=== PATIENT | female | born 1975 | race Caucasian/White ===

== ENCOUNTER 2016-12-10 17:55 | Emergency (ER) | payer SELFPAY ==
[2016-12-10 18:27] LABS: LEUKOCYTE ESTERASE,URINE NEGATIVE (NEGATIVE); NITRITE,URINE NEGATIVE (NEGATIVE); PH,URINE 5.5 (5.0-7.5)
[2016-12-10] MEDS ORDERED: HYDROmorphONE/DILAUDID 1 MG/ML SYR IVP ONE ×3 (18:28→23:37)
[2016-12-10] MEDS ORDERED: ONDANSETRON 4 MG/2 ML VIAL IVP ONE ×2 (18:28→21:36)
[2016-12-10] MEDS ORDERED: fentaNYL 100 MCG/2 ML INJ IVP ONE (18:28)
[2016-12-10] MEDS ORDERED: NS 1,000 ML IV ONE (18:28)
[2016-12-10 18:33] LABS: COLOR DARK YELLOW
--- NOTE | 2016-12-10 18:33 | UCPHY ---
H & P Time Seen by Provider: 12/10/16 18:07 Patient Type: New HPI/ROS: HPI Back pain, lower abdominal pain. 41-year-old female by private vehicle with her friend. This patient reports that she woke up this morning with left lower back and flank pain with radiation to the left lower quadrant. She reports that she feels some of this on the right side as well but not as much. She has had nausea throughout the day but no vomiting. She reports that she drank some coffee this morning but has not been drinking fluids significantly today or eating. Last bowel movement was yesterday. This was described as normal. No bloody or melenic stool. Last menstrual period was 1 week ago. She denies any urinary complaints. She has felt feverish and fatigued. ROS: Constitutional: As above. Eyes: No discharge. No changes in vision. ENT: No sore throat. No nasal congestion or rhinorrhea. Respiratory: No cough. No shortness of breath. Cardiac: No chest pain, no palpitations. Gastrointestinal: As above, no vomiting, no diarrhea. Genitourinary: No hematuria. No dysuria or increased frequency with urination. Musculoskeletal: As above. No neck pain. No myalgias or arthralgias. Skin: No rashes. Neurological: No headache. No focal weakness or altered sensation. Past medical history: None. Social history: Here with her friend. Nonsmoker. Physical Exam: General Appearance: Alert, she appears uncomfortable. This patient is responding to questions appropriately and in full sentences. This patient appears well-hydrated and well-nourished. Eyes: Pupils equal and round no pallor or injection. No lid edema, erythema or injection. Respiratory: There are no retractions, lungs are clear to auscultation with good air movement bilaterally. Cardiovascular: Regular rate and rhythm. No murmur. Gastrointestinal: Abdomen is soft with vague left-sided tenderness on palpation , she has mild epigastric and right upper quadrant tenderness on palpation as well, no masses, bowel sounds normal. No focal tenderness at McBurney's point. No Latham sign. Neurological: Motor sensory function is grossly intact. Cranial nerves are normal. Gait is normal. Skin: Warm and dry, no rashes. Musculoskeletal: CVA tenderness on palpation on the left. Extremities are symmetrical. All joints range without pain or impingement. Psychiatric: No agitation. No depression. Database: EKG: Imaging: Procedures: Emergency department course: IV placed. She was placed on a bottom filler. She was started on IV normal saline with 1 L to be given over the next hour. She was initially given 0.5 mg of IV hydromorphone and 4 mg of IV Zofran. 7:30 p.m., patient re-evaluated. She is resting comfortably at this time. Repeat examination, she still has mild and vague left lower quadrant tenderness and left sided flank tenderness on palpation. I discussed the results of her blood work and urinalysis. I explained that the most likely diagnosis was a kidney stone. However, our diagnostic capabilities are limited here because we do not have imaging by CT or ultrasound at this time. I did discuss sending her to the [facility] Emergency Department for CT imaging. She is feeling better at this time. I think it is reasonable for her to go home with some antiemetics and pain medication to rest and to see if her condition continues to improve. Strict return to emergency department precautions were discussed with her and her friend. They are both in agreement with this plan. All of their questions were answered. She will be prescribed Zofran, ibuprofen and Emerson. 7:55 p.m., just prior to patient being discharged she was complaining of her pain coming back. I recommended she go to the emergency department for CT imaging to evaluate for probable ureterolithiasis at [facility]. Her friend will take her there. I contacted physician bar assistant, Baudilio Isbell, at at [facility] emergency department. The patient's case was discussed with him and he will see her on arrival. Differential Diagnosis: The differential diagnosis on this patient includes but is not limited to pyelonephritis, nephrolithiasis, diverticulitis, cystitis, colitis. This represents a partial list of diagnoses considered. These considerations are based on history, physical exam, past history, reassessment and diagnostic testing. Smoking Status: Never smoked Constitutional: Initial Vital Signs Temperature (C) 37.2 C 12/10/16 18:08 Heart Rate 79 12/10/16 18:08 Respiratory Rate 18 12/10/16 18:08 Blood Pressure 136/80 H 12/10/16 18:08 O2 Sat (%) 97 12/10/16 18:08 O2 Delivery Mode Room Air Allergies/Adverse Reactions: Sulfa (Sulfonamide Antibiotics) Allergy (Intermediate, Verified 12/10/16 18:08) Rash sulfamethoxazole [From Bactrim] Allergy (Unknown, Verified 12/10/16 18:08) Hives trimethoprim [From Bactrim] Allergy (Unknown, Verified 12/10/16 18:08) Hives Home Medications: Medication Instructions Recorded Hydrocodone/APAP 5/325 [Emerson 1 - 2 tab PO Q4-6PRN PRN #10 tab 12/10/16 5/325 (*)] Ondansetron Odt [Zofran Odt 4 mg 4 mg PO Q4PRN PRN #10 tab 12/10/16 (*)] Valtrex 12/10/16 Medical Decision Making - Data Points Laboratory Results: Laboratory Results 12/10/16 18:45 12/10/16 18:45 12/10/16 12/10/16 18:45 18:20 WBC 12.81 H 10^3/uL (3.80-9.50) RBC 4.28 10^6/uL (4.18-5.33) Hgb 13.3 g/dL (12.6-16.3) Hct 37.7 L % (38.0-47.0) MCV 88.1 fL (81.5-99.8) MCH 31.1 pg (27.9-34.1) MCHC 35.3 g/dL (32.4-36.7) RDW 12.4 % (11.5-15.2) Plt Count 291 10^3/uL (150-400) MPV 9.3 fL (8.7-11.7) Neut % (Auto) 83.3 H % (39.3-74.2) Lymph % (Auto) 9.3 L % (15.0-45.0) [place] % (Auto) 6.8 % (4.5-13.0) Eos % (Auto) 0.1 L % (0.6-7.6) Baso % (Auto) 0.2 L % (0.3-1.7) Nucleat RBC Rel Count 0.0 % (0.0-0.2) Absolute Neuts (auto) 10.67 H 10^3/uL (1.70-6.50) Absolute Lymphs (auto) 1.19 10^3/uL (1.00-3.00) Absolute Monos (auto) 0.87 H 10^3/uL (0.30-0.80) Absolute Eos (auto) 0.01 L 10^3/uL (0.03-0.40) Absolute Basos (auto) 0.03 10^3/uL (0.02-0.10) Absolute Nucleated RBC 0.00 10^3/uL (0-0.01) Immature Gran % 0.3 % (0.0-1.1) Immature Gran # 0.04 10^3/uL (0.00-0.10) Sodium 133 L mEq/L (134-144) Potassium 3.6 mEq/L (3.5-5.2) Chloride 99 mEq/L (97-110) Carbon Dioxide 25 mEq/l (22-31) Anion Gap 9 mEq/L (8-16) BUN 9 mg/dL (7-23) Creatinine 0.7 mg/dL (0.6-1.0) Estimated GFR > 60 Glucose 110 H mg/dL (70-100) Calcium 9.1 mg/dL (8.5-10.4) Total Bilirubin 0.9 mg/dL (0.1-1.4) Conjugated Bilirubin 0.2 mg/dL (0.0-0.5) Unconjugated Bilirubin 0.7 mg/dL (0.0-1.1) AST 15 IU/L (14-46) ALT 27 IU/L (9-52) Alkaline Phosphatase 50 IU/L (38-126) Total Protein 6.5 g/dL (6.3-8.2) Albumin 3.6 g/dL (3.5-5.0) Lipase 57.0 IU/L (23-300) Urine Color DARK YELLOW Urine Appearance CLOUDY Urine pH 5.5 (5.0-7.5) Ur Specific [place] >= 1.030 (1.002-1.030) Urine Protein NEGATIVE (NEGATIVE) Urine Ketones 2+ H (NEGATIVE) Urine Blood 1+ H (NEGATIVE) Urine Nitrate NEGATIVE (NEGATIVE) Urine Bilirubin POSITIVE H (NEGATIVE) Urine Urobilinogen 0.2 EU (0.2-1.0) Ur Leukocyte Esterase NEGATIVE (NEGATIVE) Urine RBC 5-10 H /hpf (0-3) Urine WBC NONE SEEN /hpf (0-3) Ur Epithelial Cells 2+ H /lpf (NONE-1+) Urine Bacteria 1+ H /hpf (NONE SEEN) Urine Mucus 3+ H /lpf (NONE-1+) Ur Culture Indicated? NOT INDICATED (NI) Urine Glucose NEGATIVE (NEGATIVE) Urine Test NEGATIVE Medications Given: Discontinued Medications Acetaminophen/Hydrocodone Bitart (Emerson 5/325mg Prepack#6) 1 btl TAKEHOME EDNOW ONE Stop: 12/10/16 19:38 Last Admin: 12/10/16 19:43 Dose: 1 btl Fentanyl (Sublimaze) 100 mcg IVP EDNOW ONE Stop: 12/10/16 18:29 Last Admin: 12/10/16 18:58 Dose: Not Given Hydromorphone HCl (Dilaudid) 0.5 mg IVP EDNOW ONE Stop: 12/10/16 18:29 Last Admin: 12/10/16 18:40 Dose: 0.5 mg Sodium Chloride (Ns) 1,000 mls @ 0 mls/hr IV ONCE ONE PRN Reason: Wide Open Stop: 12/10/16 18:29 Last Admin: 12/10/16 18:40 Dose: 1,000 mls Ondansetron HCl (Zofran) 4 mg IVP EDNOW ONE Stop: 12/10/16 18:29 Last Admin: 12/10/16 18:40 Dose: 4 mg Ondansetron HCl (Zofran Odt 4 Mg Prepack#2) 1 btl TAKEHOME EDNOW ONE Stop: 12/10/16 19:38 Last Admin: 12/10/16 19:45 Dose: 1 btl Departure - Departure Disposition: [facility] ER Clinical Impression: Lower abdominal pain, Left flank pain Condition: Good Instructions: Flank Pain (ED), Kidney Stones (ED) Additional Instructions: Read and follow provided instructions. Follow-up with your primary care physician in 1-2 days for re-evaluation as needed. Ibuprofen dosin mg every 6 hours with meals for the next 3 days only. Emerson/Percocet dosin-2 every 4-[address] for [address] not drive on this medication. Take medication as prescribed only. As discussed, go directly to [facility] emergency department on the corner of [facility] in [place]. Referrals: IN STATE,. [Unknown] - As per Instructions Prescriptions: Hydrocodone/APAP 5/325 [Emerson 5/325 (*)] 1 - 2 tab PO Q4-6PRN PRN #10 tab PRN Reason: Pain, Moderate Ondansetron Odt [Zofran Odt 4 mg (*)] 4 mg PO Q4PRN PRN #10 tab PRN Reason: For Nausea & Vomiting - PQRS PQRS Measurement: Not applicable.
[2016-12-10 18:37] LABS: BACTERIA 1+ /hpf (NONE SEEN); MUCUS 3+ /lpf (NONE-1+); WBC,URINE NONE SEEN /hpf (0-3)
[2016-12-10 18:50] LABS: % IMMATURE GRANULYOCYTES 0.3 % (0.0-1.1); ABSOLUTE IMMATURE GRANULOCYTES 0.04 10^3/uL (0.00-0.10); ADD DIFF? NO; ADD MORPH? NO; ADD SCAN? NO; ATYPICAL LYMPHOCYTE FLAG 10 (0-99); FRAGMENT RBC FLAG 0 (0-99); HEMATOCRIT 37.7 % (38.0-47.0); HEMOGLOBIN 13.3 g/dL (12.6-16.3); LEFT SHIFT FLG 0 (0-99); LIPEMIA HEMOLYSIS FLAG 90 (0-99); MEAN CELL HEMOGLOBIN 31.1 pg (27.9-34.1); MEAN CELL HEMOGLOBIN CONCENTR. 35.3 g/dL (32.4-36.7); MEAN CELL VOLUME 88.1 fL (81.5-99.8); MEAN PLATELET VOLUME 9.3 fL (8.7-11.7); PLATELET CLUMPS FLAG 10 (0-99); PLATELET COUNT 291 10^3/uL (150-400); RED BLOOD CELL COUNT 4.28 10^6/uL (4.18-5.33); RED CELL DISTRIBUTION WIDTH 12.4 % (11.5-15.2)
[2016-12-10 19:05] LABS: ALANINE AMINOTRANSFERASE 27 IU/L (9-52); ALBUMIN 3.6 g/dL (3.5-5.0); ALKALINE PHOSPHATASE 50 IU/L (38-126); ANION GAP 9 mEq/L (8-16); ASPARTATE AMINOTRANSFERASE 15 IU/L (14-46); BILIRUBIN,TOTAL 0.9 mg/dL (0.1-1.4); BILIRUBIN-CONJUGATED 0.2 mg/dL (0.0-0.5); BILIRUBIN-UNCONJUGATED 0.7 mg/dL (0.0-1.1); CALCIUM 9.1 mg/dL (8.5-10.4); CARBON DIOXIDE 25 mEq/l (22-31); CHLORIDE 99 mEq/L (97-110); CREATININE 0.7 mg/dL (0.6-1.0); GLOMERULAR FILTRATION RATE > 60; GLUCOSE 110 mg/dL (70-100); POTASSIUM 3.6 mEq/L (3.5-5.2); SODIUM 133 mEq/L (134-144); TOTAL PROTEIN 6.5 g/dL (6.3-8.2)
[2016-12-10] MEDS ORDERED: HYDROCOD/APAP 5/325 PREPACK#6 BTL TAKEHOME ONE (19:37)
[2016-12-10] MEDS ORDERED: ONDANSETRON 4MG PREPACK#2 BTL TAKEHOME ONE (19:37)
--- NOTE | 2016-12-10 21:44 | EDPHY ---
H & P Stated Complaint: abd pain; sent by [facility] - Personal History LMP (Females 10-55): 1-7 Days Ago - Medical/Surgical History Other PMH: denies - Social History Smoking Status: Never smoked Time Seen by Provider: 12/10/16 18:07 HPI/ROS: CHIEF COMPLAINT: Abdominal pain HISTORY OF PRESENT ILLNESS: 41-year-old female initially seen at [facility] and sent to the emergency department for further evaluation. She reports that she woke this morning with left flank pain with radiation to her left lower quadrant with associated nausea. No vomiting. Bowel movements have been normal. No melena or hematochezia. Denies urinary complaints. Denies trauma. REVIEW OF SYSTEMS: A ten point review of systems was performed and is negative with the exception of the items mentioned in the HPI PAST MEDICAL & SURGICAL HISTORY: No history of abdominal surgeries beyond C- section SOCIAL HISTORY: nonsmoker PHYSICAL EXAM (Prior to examination, patient consented to physical exam, hands were washed and my usual and customary physical exam procedures followed) 1) GENERAL: Well-developed, well-nourished, alert and oriented. Appears Uncomfortable 2) HEAD: Normocephalic, atraumatic 3) HEENT: Pupils equal, round, reactive to light bilaterally. Sclera anicteric. 4) NECK: Full range of motion, no meningeal signs. 5) LUNGS: Clear auscultation bilaterally, no wheezes, no rhonchi, no retractions. 6) HEART: Regular rate and rhythm, no murmur, no heave, no gallop. 7) ABDOMEN: No guarding, tender to palpation left upper quadrant , negative McBurney's, negative Latham's, negative Rovsing's, negative peritoneal sign, 8) MUSCULOSKELETAL: Moving all extremities, no focal areas of tenderness, no obvious trauma. No peripheral edema or discoloration. 9) BACK: positive mild left CVA tenderness, no midline vertebral tenderness, no fluctuance, no step-off, no obvious trauma, no visual or palpable abnormality. 10) SKIN: No rash, no petechiae. 11) Psychiatric: Patient is oriented X 3, there is no agitation. DIFFERENTIAL DIAGNOSIS: My differential diagnosis includes, but is not limited to, acute appendicitis, acute cholecystitis, bowel obstruction, acute pancreatitis, ectopic , gastritis and urinary tract infection. (Javi Isbell) Constitutional: Initial Vital Signs Temperature (C) 37.2 C 12/10/16 18:08 Heart Rate 79 12/10/16 18:08 Respiratory Rate 18 12/10/16 18:08 Blood Pressure 136/80 H 12/10/16 18:08 O2 Sat (%) 97 12/10/16 18:08 O2 Delivery Mode Room Air Allergies/Adverse Reactions: Sulfa (Sulfonamide Antibiotics) Allergy (Intermediate, Verified 12/10/16 18:08) Rash sulfamethoxazole [From Bactrim] Allergy (Unknown, Verified 12/10/16 18:08) Hives trimethoprim [From Bactrim] Allergy (Unknown, Verified 12/10/16 18:08) Hives Home Medications: Medication Instructions Recorded Hydrocodone/APAP 5/325 [Blythe 1 - 2 tab PO Q4-6PRN PRN #10 tab 12/10/16 5/325 (*)] Ondansetron Odt [Zofran Odt 4 mg 4 mg PO Q4PRN PRN #10 tab 12/10/16 (*)] Valtrex 12/10/16 Medical Decision Making - Diagnostics Imaging: CT Scan of the Urinary Tract (Abdomen and Pelvis Without Contrast) Clinical Indications: Abdominal and left flank pain in a 41-year-old female. No previous studies are available for comparison. Technique: Multidetector helical CT imaging was performed from the lung bases to the urinary bladder without contrast. Axial images are obtained at 1.25 mm thickness. Dose reduction techniques were utilized. Findings: Abdomen: There is no nephrolithiasis. The ureters appear normal throughout their course in the abdomen.There is no hydronephrosis. There is a large simple cyst of the midpole of the left kidney measuring 7 x 5 cm. The imaged noncontrast portions of the liver, spleen, gallbladder, pancreas and adrenals are negative for acute abnormality. Several well-circumscribed low-attenuation areas are seen in the liver with the largest measuring 1.7 cm in diameter with fluid-attenuation of 2.8 Hounsfield units consistent with a simple cyst. Other smaller low-attenuation areas are statistically cysts also. The aorta tapers normally. The lung bases are clear. Pelvis: The bladder contour is normal and the distal ureters are not dilated.The appendix appears normal. The uterus is anteverted. Multiple pelvic phleboliths are noted. There is no free fluid seen. Degenerative changes are seen in the lumbar spine most prominently at L5-S1 where there is disk space loss and a vacuum disk phenomenon noted. Impression: 1. Negative for nephrolithiasis or obstructive uropathy. A large simple cyst of the left kidney is noted. 2. See above report for additional findings. A preliminary report was called to FABIAN Hardy at 2230 hours in the Emergency Department. Dictated By: Wil Driver MD Images reviewed by myself (Jaiv Isbell) ED Course/Re-evaluation: 1210: This patient was signed over to me at 11:00 p.m. shift change to follow up her pelvic ultrasound. Is reported to me that her pelvic ultrasound is unremarkable by Dr. Driver. I did go and reexamine this patient she is comfortable going home. She does understand she develops any worsening pain vomiting fever or questions or concerns to return to the emergency room. ( Yasmany Nichols) 9:40 p.m.: Medical records reviewed. Discussed case Dr. Lisa Harp in the ER. I recommended CT imaging which she is agreeable with. Analgesia anti emetic will be administered 12:30 am: Care turned over to Dr Nichols at this time. (Javi Isbell) - Data Points Laboratory Results: Laboratory Results 12/10/16 18:45 12/10/16 18:45 12/10/16 12/10/16 12/10/16 23:10 18:45 18:20 WBC 12.81 H 10^3/uL (3.80-9.50) RBC 4.28 10^6/uL (4.18-5.33) Hgb 13.3 g/dL (12.6-16.3) Hct 37.7 L % (38.0-47.0) MCV 88.1 fL (81.5-99.8) MCH 31.1 pg (27.9-34.1) MCHC 35.3 g/dL (32.4-36.7) RDW 12.4 % (11.5-15.2) Plt Count 291 10^3/uL (150-400) MPV 9.3 fL (8.7-11.7) Neut % (Auto) 83.3 H % (39.3-74.2) Lymph % (Auto) 9.3 L % (15.0-45.0) [place] % (Auto) 6.8 % (4.5-13.0) Eos % (Auto) 0.1 L % (0.6-7.6) Baso % (Auto) 0.2 L % (0.3-1.7) Nucleat RBC Rel Count 0.0 % (0.0-0.2) Absolute Neuts (auto) 10.67 H 10^3/uL (1.70-6.50) Absolute Lymphs (auto) 1.19 10^3/uL (1.00-3.00) Absolute Monos (auto) 0.87 H 10^3/uL (0.30-0.80) Absolute Eos (auto) 0.01 L 10^3/uL (0.03-0.40) Absolute Basos (auto) 0.03 10^3/uL (0.02-0.10) Absolute Nucleated RBC 0.00 10^3/uL (0-0.01) Immature Gran % 0.3 % (0.0-1.1) Immature Gran # 0.04 10^3/uL (0.00-0.10) Sodium 133 L mEq/L (134-144) Potassium 3.6 mEq/L (3.5-5.2) Chloride 99 mEq/L (97-110) Carbon Dioxide 25 mEq/l (22-31) Anion Gap 9 mEq/L (8-16) BUN 9 mg/dL (7-23) Creatinine 0.7 mg/dL (0.6-1.0) Estimated GFR > 60 Glucose 110 H mg/dL (70-100) Calcium 9.1 mg/dL (8.5-10.4) Total Bilirubin 0.9 mg/dL (0.1-1.4) Conjugated Bilirubin 0.2 mg/dL (0.0-0.5) Unconjugated Bilirubin 0.7 mg/dL (0.0-1.1) AST 15 IU/L (14-46) ALT 27 IU/L (9-52) Alkaline Phosphatase 50 IU/L (38-126) Total Protein 6.5 g/dL (6.3-8.2) Albumin 3.6 g/dL (3.5-5.0) Lipase 57.0 IU/L (23-300) Urine Color YELLOW DARK YELLOW Urine Appearance HAZY CLOUDY Urine pH 5.0 5.5 (5.0-7.5) (5.0-7.5) Ur Specific [place] 1.016 >= 1.030 (1.002-1.030) (1.002-1.030) Urine Protein NEGATIVE NEGATIVE (NEGATIVE) (NEGATIVE) Urine Ketones 2+ H 2+ H (NEGATIVE) (NEGATIVE) Urine Blood 1+ H 1+ H (NEGATIVE) (NEGATIVE) Urine Nitrate NEGATIVE NEGATIVE (NEGATIVE) (NEGATIVE) Urine Bilirubin NEGATIVE POSITIVE H (NEGATIVE) (NEGATIVE) Urine Urobilinogen NEGATIVE EU 0.2 EU (0.2-1.0) (0.2-1.0) Ur Leukocyte Esterase NEGATIVE NEGATIVE (NEGATIVE) (NEGATIVE) Urine RBC 1-3 /hpf 5-10 H /hpf (0-3) (0-3) Urine WBC NONE SEEN /hpf NONE SEEN /hpf (0-3) (0-3) Ur Epithelial Cells 2+ H /lpf 2+ H /lpf (NONE-1+) (NONE-1+) Urine Bacteria 1+ H /hpf (NONE SEEN) Urine Mucus 2+ H /lpf 3+ H /lpf (NONE-1+) (NONE-1+) Ur Culture Indicated? NOT INDICATED (NI) Urine Glucose NEGATIVE NEGATIVE (NEGATIVE) (NEGATIVE) Urine Test NEGATIVE Medications Given: Discontinued Medications Acetaminophen/Hydrocodone Bitart (Blythe 5/325mg Prepack#6) 1 btl TAKEHOME EDNOW ONE Stop: 12/10/16 19:38 Last Admin: 12/10/16 19:43 Dose: 1 btl Fentanyl (Sublimaze) 100 mcg IVP EDNOW ONE Stop: 12/10/16 18:29 Last Admin: 12/10/16 18:58 Dose: Not Given Hydromorphone HCl (Dilaudid) 0.5 mg IVP EDNOW ONE Stop: 12/10/16 18:29 Last Admin: 12/10/16 18:40 Dose: 0.5 mg Hydromorphone HCl (Dilaudid) 1 mg IVP EDNOW ONE Stop: 12/10/16 21:37 Last Admin: 12/10/16 21:45 Dose: 1 mg Hydromorphone HCl (Dilaudid) 0.5 mg IVP EDNOW ONE Stop: 12/10/16 23:38 Last Admin: 12/10/16 23:43 Dose: 0.5 mg Sodium Chloride (Ns) 1,000 mls @ 0 mls/hr IV ONCE ONE PRN Reason: Wide Open Stop: 12/10/16 18:29 Last Admin: 12/10/16 18:40 Dose: 1,000 mls Ondansetron HCl (Zofran) 4 mg IVP EDNOW ONE Stop: 12/10/16 18:29 Last Admin: 12/10/16 18:40 Dose: 4 mg Ondansetron HCl (Zofran Odt 4 Mg Prepack#2) 1 btl TAKEHOME EDNOW ONE Stop: 12/10/16 19:38 Last Admin: 12/10/16 19:45 Dose: 1 btl Ondansetron HCl (Zofran) 4 mg IVP EDNOW ONE Stop: 12/10/16 21:37 Last Admin: 12/10/16 21:45 Dose: 4 mg Departure - Departure Disposition: [facility] ER Clinical Impression: Lower abdominal pain, Left flank pain Condition: Good Instructions: Hydrocodone/Acetaminophen (By mouth), Ondansetron (By mouth), Kidney Stones (ED), Flank Pain (ED) Additional Instructions: Read and follow provided instructions. Follow-up with your primary care physician in 1-2 days for re-evaluation as needed. Ibuprofen dosin mg every 6 hours with meals for the next 3 days only. Blythe/Percocet dosin-2 every 4-[address] not drive on this medication. Take medication as prescribed only. As discussed, go directly to [facility] emergency department on the corner of [address] in [place]. Referrals: IN STATE,. [Unknown] - As per Instructions Ashvin Hawthorne MD [Medical Doctor] - As per Instructions Prescriptions: Hydrocodone/APAP 5/325 [Blythe 5/325 (*)] 1 - 2 tab PO Q4-6PRN PRN #10 tab PRN Reason: Pain, Moderate Ondansetron Odt [Zofran Odt 4 mg (*)] 4 mg PO Q4PRN PRN #10 tab PRN Reason: For Nausea & Vomiting
--- NOTE | 2016-12-10 22:38 | CT ---
CT Scan of the Urinary Tract (Abdomen and Pelvis Without Contrast) Clinical Indications: Abdominal and left flank pain in a 41-year-old female. No previous studies are available for comparison. Technique: Multidetector helical CT imaging was performed from the lung bases to the urinary bladder without contrast. Axial images are obtained at 1.25 mm thickness. Dose reduction techniques were ut ilized. Findings: Abdomen: There is no nephrolithiasis. The ureters appear normal throughout their course in the abdome n.There is no hydronephrosis. There is a large simple cyst of the midpole of the left kidney measurin g 7 x 5 cm. The imaged noncontrast portions of the liver, spleen, gallbladder, pancreas and adrenals are negativ e for acute abnormality. Several well-circumscribed low-attenuation areas are seen in the liver with the largest measuring 1.7 cm in diameter with fluid-attenuation of 2.8 Hounsfield units consistent wi th a simple cyst. Other smaller low-attenuation areas are statistically cysts also. The aorta tapers normally. The lung bases are clear. Pelvis: The bladder contour is normal and the distal ureters are not dilated.The appendix appears n ormal. The uterus is anteverted. Multiple pelvic phleboliths are noted. There is no free fluid seen. Degenerative changes are seen in the lumbar spine most prominently at L5-S1 where there is disk space loss and a vacuum disk phenomenon noted. Impression: 1. Negative for nephrolithiasis or obstructive uropathy. A large simple cyst of the left kidney is no neyda. 2. See above report for additional findings. A preliminary report was called to FABIAN Hardy at 2230 hours in the Emergency Department.
[2016-12-10 23:32] LABS: COLOR YELLOW; LEUKOCYTE ESTERASE,URINE NEGATIVE (NEGATIVE); NITRITE,URINE NEGATIVE (NEGATIVE)
[2016-12-10 23:37] LABS: MUCUS 2+ /lpf (NONE-1+)
[2016-12-10 23:38] LABS: WBC,URINE NONE SEEN /hpf (0-3)
[2016-12-11 00:57] VITALS: BP 121/69; PULSE 79; RESP 16; TEMP 98.6; O2SAT 95
--- NOTE | 2016-12-11 09:38 | US ---
Complete Retroperitoneal Ultrasound History: Large left renal cyst. Left flank pain. Comparison: CT abdomen and pelvis December 10, 2016 at 2151 hours. Findings: The right kidney measures 13.4 x 4.3 x 4.9 cm and the left kidney measures 14.6 x 7.9 x 7.8 cm, with transverse measurements exaggerated by a central cyst. There is a 7.6 x 4.9 x 4.3 cm cyst i n the mid left kidney corresponding to the finding on CT, with minimal layering debris. There is no h ydronephrosis. Cortical thickness is normal. The bladder is normal. The patient had voided immediately prior to the study. Bladder volume at the t helen of the study is 99 mL. Impression: 7.6 cm benign left renal cyst. Findings discussed with Yasmany Nichols today at 0052 hours. The preliminary and final reports were c oncordant.
== END 2016-12-11 01:21 | disposition still patient (30) ==
LOC: CED 17:55
DX: R10.30 Lower abdominal pain, unspecified (principal); N28.1 Cyst of kidney, acquired
CPT/HCPCS: 80048-PO; 80076-PO; 81003-PO; 81015-PO; 81025-PO; 83690-PO; 85025-PO; 96360-PO; 96374; G0463-PO; J1170; J2405; J3010

== ENCOUNTER 2016-12-12 06:38 | Inpatient (IN) | payer OTHER ==
[2016-12-12] MEDS ORDERED: ACETAMINOPHEN 500 MG TAB PO ONE (07:12)
[2016-12-12] MEDS ORDERED: ONDANSETRON 4 MG/2 ML VIAL IVP ONE (07:12)
[2016-12-12] MEDS ORDERED: fentaNYL 100 MCG/2 ML INJ ONE ×2 (07:15→16:39)
[2016-12-12 07:20] LABS: % IMMATURE GRANULYOCYTES 0.4 % (0.0-1.1); ABSOLUTE IMMATURE GRANULOCYTES 0.07 10^3/uL (0.00-0.10); ADD DIFF? NO; ADD MORPH? NO; ADD SCAN? NO; ATYPICAL LYMPHOCYTE FLAG 10 (0-99); FRAGMENT RBC FLAG 0 (0-99); HEMATOCRIT 35.5 % (38.0-47.0); HEMOGLOBIN 12.4 g/dL (12.6-16.3); LEFT SHIFT FLG 0 (0-99); LIPEMIA HEMOLYSIS FLAG 90 (0-99); MEAN CELL HEMOGLOBIN 30.9 pg (27.9-34.1); MEAN CELL HEMOGLOBIN CONCENTR. 34.9 g/dL (32.4-36.7); MEAN CELL VOLUME 88.5 fL (81.5-99.8); MEAN PLATELET VOLUME 9.4 fL (8.7-11.7); PLATELET CLUMPS FLAG 10 (0-99); PLATELET COUNT 259 10^3/uL (150-400); RED BLOOD CELL COUNT 4.01 10^6/uL (4.18-5.33); RED CELL DISTRIBUTION WIDTH 12.2 % (11.5-15.2)
[2016-12-12] MEDS: NS 1,000 ML IV ONE ×2 (07:20→07:40)
[2016-12-12] MEDS ORDERED: fentaNYL 100 MCG/2 ML INJ IVP ONE (07:20)
[2016-12-12] MEDS ORDERED: NS 1,000 ML BAG *FOR SEPSIS ORDER SET ONLY IV ONE (07:21)
--- NOTE | 2016-12-12 07:25 | EDPHY ---
H & P Stated Complaint: abd pain, diff urinating, flank pain Time Seen by Provider: 12/12/16 07:10 HPI/ROS: CHIEF COMPLAINT: Left flank and abdominal pain HISTORY OF PRESENT ILLNESS: The patient is a 41-year-old healthy female who comes to the emergency department complaining of left flank pain, abdominal pain , dehydration, hematuria and bloating. She was seen here 2 days ago with left flank pain radiating to her groin. At that time she was diagnosed with a very large 7 x 5 cm simple cyst on her liver. She had a CT scan and ultrasound. Appendix was normal. No sign of kidney stone. Urinalysis did not show signs of infection. She felt better and went home. She states however that her pain has continued and worsened over the last 10 hours. She has also started to have fevers and chills. The pain increased gradually not suddenly. It now is in her lower abdomen right and left side. No vaginal or pelvic symptoms. She states that she has had some hematuria and decreased frequency and decreased volume. She classifies her pain as severe. No respiratory or upper respiratory symptoms. REVIEW OF SYSTEMS: Constitutional: denies: chills, fever, recent illness, recent injury EENTM: denies: blurred vision, double vision, nose congestion Respiratory: denies: cough, shortness of breath Cardiac: denies: chest pain, irregular heart rate, lightheadedness, palpitations Gastrointestinal/Abdominal: abdominal pain,denies: diarrhea, nausea, vomiting , blood streaked stools Genitourinary: See HPI Musculoskeletal: denies: joint pain, muscle pain Skin: denies: lesions, rash, jaundice, bruising Neurological: denies: headache, numbness, paresthesia, tingling, dizziness, weakness Hematologic/Lymphatic: denies: blood clots, easy bleeding, easy bruising Immunologic/allergic: denies: HIV/AIDS, transplant EXAM: GENERAL: Well-appearing, well-nourished and in no acute distress. HEAD: Atraumatic, normocephalic. EYES: Pupils equal round and reactive to light, extraocular movements intact, sclera anicteric, conjunctiva are normal. ENT: TMs normal, nares patent, oropharynx clear without exudates. Moist mucous membranes. NECK: Normal range of motion, supple without lymphadenopathy or JVD. LUNGS: Breath sounds clear to auscultation bilaterally and equal. No wheezes rales or rhonchi. HEART: Regular rate and rhythm without murmurs, rubs or gallops. ABDOMEN: Soft, mild diffuse tenderness, no peritoneal signs, normoactive bowel sounds. No guarding, no rebound. No masses appreciated. BACK: No CVA tenderness, no spinal tenderness, step-offs or deformities EXTREMITIES: Normal range of motion, no pitting or edema. No clubbing or cyanosis. NEUROLOGICAL: Cranial nerves II through XII grossly intact. Normal speech, normal gait. 5/5 strength, normal movement in all extremities, normal sensation PSYCH: Normal mood, normal affect. SKIN: Warm, dry, normal turgor, no visible rashes or lesions. Source: Patient Exam Limitations: No limitations - Personal History LMP (Females 10-55): 1-7 Days Ago Current Tetanus Diphtheria and Acellular Pertussis (TDAP): Unsure - Medical/Surgical History Hx Asthma: No Hx Chronic Respiratory Disease: No Hx Diabetes: No Hx Cardiac Disease: No Hx Renal Disease: No Hx Cirrhosis: No Hx Alcoholism: No Hx HIV/AIDS: No Hx Splenectomy or Spleen Trauma: No Other PMH: - Family History Significant Family History: Hypertension - Social History Smoking Status: Never smoked Alcohol Use: Sober Drug Use: None Constitutional: Initial Vital Signs Temperature (C) 38.4 C H 12/12/16 06:41 Heart Rate 98 12/12/16 06:41 Respiratory Rate 20 12/12/16 06:41 Blood Pressure 129/81 H 12/12/16 06:41 O2 Sat (%) 94 12/12/16 06:41 O2 Delivery Mode Nasal Cannula O2 (L/minute) 2 Allergies/Adverse Reactions: Sulfa (Sulfonamide Antibiotics) Allergy (Intermediate, Verified 12/10/16 18:08) Rash sulfamethoxazole [From Bactrim] Allergy (Unknown, Verified 12/10/16 18:08) Hives trimethoprim [From Bactrim] Allergy (Unknown, Verified 12/10/16 18:08) Hives Home Medications: Medication Instructions Recorded Hydrocodone/APAP 5/325 [[place] 1 - 2 tab PO Q4-6PRN PRN #10 tab 12/10/16 5/325 (*)] Ondansetron Odt [Zofran Odt 4 mg 4 mg PO Q4PRN PRN #10 tab 12/10/16 (*)] Medical Decision Making - Diagnostics Imaging: Results: CT scan of the abdomen and pelvis was obtained. The results of the study are left-sided renal cyst/possible abscess, on ruptured, no other abnormalities seen. The study was read by Dr. Johnathan Vázquez. I viewed the images myself on the PACS system. ED Course/Re-evaluation: Patient's CT scan looks similar to previous however she is now febrile and her white count has increased. She has had increased pain. I will admit her for IV antibiotics and likely drainage via interventional radiology. Patient understands and agrees this plan. The patient does meet sepsis criteria. She has been given a fluid bolus. 8:50 a.m. I discussed the case with Earline who accepted for Dr. Cartwright. Differential Diagnosis: Partial list of the Differential diagnosis considered include but were not limited to; abscess, cyst rupture, urinary tract infection, kidney stone and although unlikely based on the history and physical exam, I also considered diverticulitis, obstruction, ischemia. Critical Care Time: I spent a total of 35 minutes of critical care time in obtaining history, performing a physical exam, bedside monitoring of interventions, collecting and interpreting tests and discussion with consultants but not including time spent performing procedures . - Data Points Laboratory Results: Laboratory Results 12/12/16 07:10 12/12/16 07:10 12/12/16 12/12/16 12/12/16 07:30 07:15 07:10 WBC 17.70 H 10^3/uL (3.80-9.50) RBC 4.01 L 10^6/uL (4.18-5.33) Hgb 12.4 L g/dL (12.6-16.3) Hct 35.5 L % (38.0-47.0) MCV 88.5 fL (81.5-99.8) MCH 30.9 pg (27.9-34.1) MCHC 34.9 g/dL (32.4-36.7) RDW 12.2 % (11.5-15.2) Plt Count 259 10^3/uL (150-400) MPV 9.4 fL (8.7-11.7) Neut % (Auto) 83.5 H % (39.3-74.2) Lymph % (Auto) 8.6 L % (15.0-45.0) [place] % (Auto) 7.2 % (4.5-13.0) Eos % (Auto) 0.1 L % (0.6-7.6) Baso % (Auto) 0.2 L % (0.3-1.7) Nucleat RBC Rel Count 0.0 % (0.0-0.2) Absolute Neuts (auto) 14.79 H 10^3/uL (1.70-6.50) Absolute Lymphs (auto) 1.53 10^3/uL (1.00-3.00) Absolute Monos (auto) 1.27 H 10^3/uL (0.30-0.80) Absolute Eos (auto) 0.01 L 10^3/uL (0.03-0.40) Absolute Basos (auto) 0.03 10^3/uL (0.02-0.10) Absolute Nucleated RBC 0.00 10^3/uL (0-0.01) Immature Gran % 0.4 % (0.0-1.1) Immature Gran # 0.07 10^3/uL (0.00-0.10) VBG Lactic Acid 1.0 mmol/L (0.7-2.1) Sodium 135 mEq/L (134-144) Potassium 3.5 mEq/L (3.5-5.2) Chloride 100 mEq/L (97-110) Carbon Dioxide 26 mEq/l (22-31) Anion Gap 9 mEq/L (8-16) BUN 6 L mg/dL (7-23) Creatinine 0.7 mg/dL (0.6-1.0) Estimated GFR > 60 Glucose 128 H mg/dL (70-100) Calcium 8.1 L mg/dL (8.5-10.4) Total Bilirubin 0.6 mg/dL (0.1-1.4) Conjugated Bilirubin 0.1 mg/dL (0.0-0.5) Unconjugated Bilirubin 0.5 mg/dL (0.0-1.1) AST 15 IU/L (14-46) ALT 29 IU/L (9-52) Alkaline Phosphatase 60 IU/L (38-126) Total Protein 6.0 L g/dL (6.3-8.2) Albumin 3.2 L g/dL (3.5-5.0) Lipase 45.0 IU/L (23-300) Beta HCG, Qual NEGATIVE Urine Color YELLOW Urine Appearance HAZY Urine pH 6.0 (5.0-7.5) Ur Specific [place] 1.021 (1.002-1.030) Urine Protein 2+ H (NEGATIVE) Urine Ketones 1+ H (NEGATIVE) Urine Blood NEGATIVE (NEGATIVE) Urine Nitrate NEGATIVE (NEGATIVE) Urine Bilirubin NEGATIVE (NEGATIVE) Urine Urobilinogen NEGATIVE EU (0.2-1.0) Ur Leukocyte Esterase NEGATIVE (NEGATIVE) Urine RBC 1-3 /hpf (0-3) Urine WBC 1-3 /hpf (0-3) Ur Epithelial Cells 1+ /lpf (NONE-1+) Urine Bacteria TRACE H /hpf (NONE SEEN) Urine Mucus TRACE /lpf (NONE-1+) Ur Culture Indicated? NOT INDICATED (NI) Urine Glucose NEGATIVE (NEGATIVE) Influenza Typ A,B (DFA) NEGATIVE FOR FLU (NEGATIVE) Medications Given: Discontinued Medications Acetaminophen (Tylenol) 1,000 mg PO EDNOW ONE Stop: 12/12/16 07:13 Last Admin: 12/12/16 07:20 Dose: 1,000 mg Fentanyl (Sublimaze) 100 mcg IVP EDNOW ONE Stop: 12/12/16 07:21 Last Admin: 12/12/16 07:20 Dose: 100 mcg Hydromorphone HCl (Dilaudid) 1 mg IVP EDNOW ONE Stop: 12/12/16 08:45 Last Admin: 12/12/16 09:05 Dose: 1 mg Sodium Chloride (Ns) 1,000 mls @ 0 mls/hr IV EDNOW ONE PRN Reason: Wide Open Stop: 12/12/16 07:14 Last Admin: 12/12/16 07:40 Dose: Not Given Vancomycin/Sodium Chloride (Vancomycin 1 Gm (Premix)) 250 mls @ 250 mls/hr IV ONCE ONE Stop: 12/12/16 09:59 Last Admin: 12/12/16 09:45 Dose: 250 mls Ondansetron HCl (Zofran) 4 mg IVP EDNOW ONE Stop: 12/12/16 07:13 Last Admin: 12/12/16 07:20 Dose: 4 mg Sodium Chloride (Ns *For Sepsis Order Set Only*) 2,245 ml IV EDNOW ONE Stop: 12/12/16 07:22 Last Admin: 12/12/16 07:25 Dose: 2,245 ml Departure - Departure Disposition: [facility] Inpatient Acute Clinical Impression: Renal abscess, left Sepsis Qualifiers: Sepsis type: sepsis due to unspecified organism Qualifier Code: (A41.9) Sepsis , unspecified organism Condition: Fair
[2016-12-12 07:30] LABS: ANION GAP 9 mEq/L (8-16); CALCIUM 8.1 mg/dL (8.5-10.4); CARBON DIOXIDE 26 mEq/l (22-31); CHLORIDE 100 mEq/L (97-110); CREATININE 0.7 mg/dL (0.6-1.0); GLOMERULAR FILTRATION RATE > 60; GLUCOSE 128 mg/dL (70-100); POTASSIUM 3.5 mEq/L (3.5-5.2); SODIUM 135 mEq/L (134-144)
[2016-12-12 07:31] LABS: COLOR YELLOW; LEUKOCYTE ESTERASE,URINE NEGATIVE (NEGATIVE); NITRITE,URINE NEGATIVE (NEGATIVE)
[2016-12-12 07:37] LABS: BACTERIA TRACE /hpf (NONE SEEN); MUCUS TRACE /lpf (NONE-1+)
[2016-12-12 07:37] LABS: ALBUMIN 3.2 g/dL (3.5-5.0); BILIRUBIN,TOTAL 0.6 mg/dL (0.1-1.4); BILIRUBIN-CONJUGATED 0.1 mg/dL (0.0-0.5); BILIRUBIN-UNCONJUGATED 0.5 mg/dL (0.0-1.1)
[2016-12-12] MEDS ORDERED: IOPAMIDOL (ISOVUE-300) 50 ML VIAL IV ONE (07:43)
[2016-12-12] MEDS ORDERED: HYDROmorphONE/DILAUDID 1 MG/ML SYR IVP ONE (08:44)
[2016-12-12] MEDS ORDERED: VANCOMYCIN HCL/NORMAL SALINE 250 ML IV ONE (09:00)
[2016-12-12] MEDS: PIPERACILLIN/TAZO 4.5 GM/DEX 100 ML IV SCH ×3 (09:10→22:09)
--- NOTE | 2016-12-12 09:54 | CT ---
CT Abdomen and Pelvis With IV Contrast. Clinical Indication abdominal pain and flank pain. Fever. TECHNIQUE: 1.25 mm contiguous helical axial scanning through the abdomen after the uneventful adminis tration of 90 mL of Isovue-300. A 12 minute delay was performed to evaluate the collecting system. Ro utine reconstructions were performed in the coronal and sagittal planes. Dose reduction technique was performed. FINDINGS: A low density in the dome of the liver series 2 image 10 is most likely a cyst too small to characterize. There are other low densities including image 15 series 2 and image 16 series 2. These most likely represent cysts. The pancreas and spleen are unremarkable. The adrenal and right kidney are unremarkable. The left adrenal is unremarkable. There is a 7.4 x 6.6 x 6.2 cm parapelvic cyst in the left kidney. It does not appear to fill with contrast on the delayed imaging. It appears minimall y thick-walled. It measures 15 Hounsfield units postcontrast. Small bowel and colon are unremarkable. Bladder is fluid-filled. Minimal degenerative changes of the spine. IMPRESSION: 1. Indeterminate left kidney cyst. Cannot exclude infection given clinical history of elevated white blood cell count fever and left flank pain. It appears just slightly more thick-walled than a simple cyst on postcontrast imaging. If clinically concerned this could be sampled under CT or ultrasound gu idance. 2. Hypodensities in the liver most likely represent benign cysts. Critical results discussed by Dr. Vázquez with Dr. Rivers today 0845 hours.
[2016-12-12] MEDS ORDERED: oxyCODONE IR 5 MG TAB PO PRN (11:25)
[2016-12-12] MEDS ORDERED: ACETAMINOPHEN 325 MG TAB PO PRN (11:25)
[2016-12-12] MEDS ORDERED: ONDANSETRON DISINTEGRATING 4 MG TAB PO PRN ×2 (11:25→12:09)
[2016-12-12] MEDS ORDERED: NALOXONE HCL 0.4 MG/ML INJ IVP PRN (11:29)
[2016-12-12] MEDS ORDERED: morphINE PCA 30 MG/30 ML PCA IV PRN (11:29)
--- NOTE | 2016-12-12 13:37 | GHP ---
[f rep st] HISTORY AND PHYSICAL DATE OF ADMISSION: 12/12/2016 CHIEF COMPLAINT: Abdominal and flank pain. HISTORY OF PRESENT ILLNESS: Ms. Daugherty is a 41-year-old, generally healthy active female, who pres ented to the emergency room on 12/10/2016, with complaints of left-sided flank pain. At that time, a CT was performed noting an incidental renal cyst. The patient was sent home with pain medication. She returned to the emergency room on 12/12/2016, with increasing pain as well as a fever. The pain she describes as left-sided flank or back pain, as well as generalized lower quadrant abdominal pain, with significant bloating. She states that she has been nauseous for approximately 3 days, and has been unable to really eat anything. She states that she feels dehydrated and bloated. She denies an y fevers until last evening, at which time she developed fever with chills, and the pain has continue d to increase. She denies any vomiting or diarrhea. She denies any chest pain, shortness of breath, or dyspnea. She denies any headache or changes in vision. REVIEW OF SYSTEMS: A comprehensive 10-point review of systems is negative other than noted in the HP I. PAST MEDICAL HISTORY: Benign per the patient. PAST SURGICAL HISTORY: approximately 6 years ago. SOCIAL HISTORY: The patient denies any recreational drugs. She consumes 1-2 alcoholic beverages a w [place]. She participates in yoga and is very active. FAMILY HISTORY: Noted for hypertension. ALLERGIES: Sulfa. MEDICATIONS: Include [place] and Zofran which were provided to the patient approximately 2 days prior. PHYSICAL EXAM: GENERAL: The patient is alert, uncomfortable. VITAL SIGNS: Currently afebrile at 3 7.3, pulse is 81, respiratory rate 16, blood pressure is 124/75. She is saturating at 98% on 2 L. H EENT: Normocephalic, atraumatic. Mucous membranes are moist. Pupils equal, round, reactive to ligh t. NECK: Supple. RESPIRATORY: Lungs are clear to auscultation bilaterally. No rhonchi or wheezes appreciated. CARDIOVASCULAR: S1, S2. No gallop or murmur noted. GASTROINTESTINAL: Bowel sounds a re positive. Soft, tender in the lower quadrants. Mildly distended. BACK: No spinal tenderness. E XTREMITIES: Within normal limits. There is no clubbing or cyanosis appreciated. Normal range of mo tion. NEUROLOGIC: The patient is focally intact. SKIN: Warm and dry without rashes or lesions. LABORATORY DATA: White count is 17.7, with a hemoglobin 12.4, hematocrit 35.5. RADIOLOGICAL STUDIES: CT scan of the abdomen notes left kidney parapelvic cyst, as well as hypodensi ties in the liver, most likely representing benign cysts. ASSESSMENT AND PLAN: Ms. Daugherty is a 41-year-old female, admitted to the hospital secondary to inc reased flank pain, with notable cyst versus abscess, on CT scan. The patient will be evaluated by In terventional Radiology and the accumulation will be attempted to be drained. I have discussed the travis he's care with Dr. Rodolfo Mtz, of Infectious Disease. We will continue IV antibiotic therapy p er her recommendations. I have ordered a INSTALLER MOLDING AND TRIM for pain control. The patient will remain n.p.o. until Interventional Radiology is able to place a drain. Further action will be warranted based on the travis he's Interventional Radiology evaluation and development of plan of care. /[id number]/MODL
--- NOTE | 2016-12-12 13:43 | GCON ---
[f rep st] CONSULTATION INFECTIOUS DISEASE CONSULTATION DATE OF CONSULTATION: 12/12/2016 REFERRING PHYSICIAN: Earline Mims NP REASON FOR CONSULTATION: Left renal abscess, for further evaluation and management. CHIEF COMPLAINT: Left flank pain with fevers. HISTORY OF PRESENT ILLNESS: This is a 41-year-old female with a past medical history signi ficant for in 2009, mild urinary tract infections in the past not requiring antibiotics, wh o was admitted today due to increasing left flank pain and fevers. She states that her symptoms star neyda suddenly about 2 days ago with left flank pain. At that time, she was having some chills, but no fever. She came into the Urgent Care for further evaluation. She was noted to have a white blood c ell count of 12.8. She was then transferred to the ED for a CT scan and ultrasound. The CT scan not ed a large left renal cyst, and the ultrasound seemed to be consistent with that as well. She was se nt home, but continued to have pain. Yesterday, her pain became progressively worse, and she started to have fevers, and she came back in for further evaluation. CT scan again showed an indeterminate left kidney cyst versus abscess. This was measuring 7.4 x 6.6 x 6.2 cm. Neither one of her CT scans showed any nephrolithiasis or obstructive uropathy. There was a low density noted in the liver, whi ch was too small to characterize. Small bowel and colon were described as unremarkable. Today, her white blood cell count is elevated at 17.7 with a left shift. She came in with a fever of 38.4. Blo od cultures x2 sets have been drawn. She states that she occasionally has had mild cases of dysuria, which improved with cranberry juice a nd usually were self-limiting and have not required antibiotics in the past. She denied any trauma t o the left abdomen. She recently had dental cleaning about 1 month ago, and had not had regular demetria emelyn prior to that. She denied any heavy gum bleeding during that visit. She denies any recent epis odes of diarrhea. Infectious Disease is now consulted for further evaluation and opinion regarding t he above. REVIEW OF SYSTEMS: GENERAL: Had fevers and shaking chills. Had mild headache at present, but none previously. EYES: No change in vision. ENT: No sore throat, difficulty swallowing, ear pain or ea r drainage. CARDIOVASCULAR: Denies any chest pain or rapid heartbeat. RESPIRATORY: Denies any jeannie rtness of breath, cough or sputum production. ABDOMEN: Having some nausea, no vomiting. Abdomen fe els bloated and some pain along the left side, and then down to the suprapubic region. Denies any di arrhea. GENITOURINARY: Denies any dysuria. Did have some hematuria yesterday. MUSCULOSKELETAL: N o focal joint pains. Has some diffuse myalgias that are present now. SKIN: Denies any rashes or op en wounds. Rest of the 10-point review of systems is essentially negative except for the above. PAST MEDICAL HISTORY: No significant medical conditions in the past, except for some mild dysuria, n ot requiring antibiotics. PAST SURGICAL HISTORY: Significant for in 2009 without complication. ALLERGIES: Sulfa, which gives her a rash. She does not know of any throat swelling or shortness of breath with that. SOCIAL HISTORY: She is a nonsmoker. She drinks alcohol socially. Denies illicit drug usage. She h as a son. She works. She has had no travel outside of [place] or internationally recently. FAMILY HISTORY: Reviewed and found to be unremarkable. MEDICATIONS: As per JAN. PHYSICAL EXAMINATION: VITAL SIGNS: Temperature current 37.2, T-max today 38.4, pulse is 79, respira tory rate is 16, blood pressure 110/66, saturation 98% on room air. GENERAL: Patient is resting in bed, in no acute respiratory distress, but is in pain. HEENT: Head is normocephalic. Eyes were wit hout conjunctivitis or conjunctival petechiae. The oropharynx is clear. There is no posterior eryth xin or thrush. CARDIOVASCULAR: S1, S2 regular rate and rhythm. She has a soft systolic murmur note d. Respiratory: Clear to auscultation bilaterally. No rhonchi or rales appreciated. ABDOMEN: Pos itive bowel sounds. Tenderness, especially on the left side, with mild guarding, tenderness over the suprapubic region as well with some mild distention of the abdomen. MUSCULOSKELETAL: No obvious ishaan int effusions or pain on palpation of the joints. SKIN: No obvious rashes or open wounds. BACK: S he has left-sided CVA tenderness. LABS: White blood cell count 17.7, hemoglobin 12.4, platelets are 259, neutrophil count was 83%. La ctic acid 1.0. Chemistry: Sodium 135, potassium 3.5, chloride 100, bicarb 26, BUN is 6, creatinine 0.7. LFTs are within the normal range. Beta hCG is negative. Urinalysis, 2+ protein, 1+ ketones, n egative nitrites, negative leuk esterase. Urine WBCs 1-3, urine RBCs 1-3, trace bacteria. Influenza type A and B DFA negative. Microbiology: Blood cultures x2 sets are pending. Abdominal CT as desc ribed above. ASSESSMENT: Fevers, leukocytosis, with a left kidney collection, cyst versus abscess. PLAN: At this point in time, patient is currently on vancomycin and Zosyn. Feel like MRSA risk fact ors are low at this point in time. No recent history of [place] catheter. We will discontinue vancomy vamshi and continue with broad-spectrum antimicrobials with Zosyn. Await blood cultures to further eval uate. Recommend IR drainage of the left renal collection for culture sampling as well as for therape utic modality. Given recent dental cleaning, a soft systolic murmur, and current presentation, would recommend a 2D echo to further evaluate. Plan of care was discussed at length with the patient in d etail. Care was coordinated with the hospitalist team. We will continue to follow closely with you. Thank you very much for providing this opportunity to care for your patient in consultation. /[id number]/MODL
[2016-12-12] MEDS ORDERED: LORazepam 1 MG TAB PO ONE (15:30)
[2016-12-12] MEDS ORDERED: IOPAMIDOL (ISOVUE-300) 100 ML BTL IV ONE (17:27)
[2016-12-12] MEDS: D5W 1/2 NS 1,000 ML IV SCH (19:55)
[2016-12-13] MEDS: HYDROCODONE/APAP 5/325 TAB PO PRN ×7 (00:25→23:20)
[2016-12-13] MEDS: D5W 1/2 NS 1,000 ML IV SCH ×2 (03:56→15:57)
[2016-12-13] MEDS: PIPERACILLIN/TAZO 4.5 GM/DEX 100 ML IV SCH ×4 (03:56→22:00)
[2016-12-13 05:18] LABS: % IMMATURE GRANULYOCYTES 0.6 % (0.0-1.1); ABSOLUTE IMMATURE GRANULOCYTES 0.08 10^3/uL (0.00-0.10); ADD DIFF? NO; ADD MORPH? NO; ADD SCAN? NO; ATYPICAL LYMPHOCYTE FLAG 0 (0-99); FRAGMENT RBC FLAG 0 (0-99); HEMATOCRIT 29.8 % (38.0-47.0); HEMOGLOBIN 10.2 g/dL (12.6-16.3); LEFT SHIFT FLG 0 (0-99); LIPEMIA HEMOLYSIS FLAG 90 (0-99); MEAN CELL HEMOGLOBIN CONCENTR. 34.2 g/dL (32.4-36.7); MEAN CELL VOLUME 90.6 fL (81.5-99.8); MEAN PLATELET VOLUME 9.1 fL (8.7-11.7); PLATELET CLUMPS FLAG 10 (0-99); PLATELET COUNT 221 10^3/uL (150-400); RED BLOOD CELL COUNT 3.29 10^6/uL (4.18-5.33); RED CELL DISTRIBUTION WIDTH 12.6 % (11.5-15.2)
[2016-12-13 05:43] LABS: CALCIUM 7.1 mg/dL (8.5-10.4); CHLORIDE 103 mEq/L (97-110); CREATININE 0.7 mg/dL (0.6-1.0); GLOMERULAR FILTRATION RATE > 60; GLUCOSE 118 mg/dL (70-100); POTASSIUM 3.2 mEq/L (3.5-5.2); SODIUM 136 mEq/L (134-144)
[2016-12-13 06:58] LABS: ANION GAP 6 mEq/L (8-16); CARBON DIOXIDE 27 mEq/l (22-31)
--- NOTE | 2016-12-13 11:45 | ECHO ---
[id number] + + [address] : : [place] [address] : : [phone] + + Adult Echocardiographic Report + ---------+ :Name: IRAIS HARDING LStudy Date: 12/13/2016 07:43 AM : : Hospital Admission Number: [id number] Sharon alexander: 312: :: 1975 Gender: Female Height: 71 i n : :Age: 41 yrs Race: WH Weight: 165 lb : :Reason For Study: Eval for Endocarditis : : BSA: 1.9 met ers2 : :History: Murmur, Fevers, Renal absess : + ---------+ MMode/2D Measurements & Calculations IVSd: 0.99 cm LVIDd: 4.5 cm FS: 35.3 % Ao root diam: 3.5 cm LVPWd: 1.0 cm LVIDs: 2.9 cm EDV(Teich): 91.1 ml ACS: 2.3 cm ESV(Teich): 32.0 ml LA dimension: 2.6 cm EF(Teich): 64.9 % Normal Measurement Values: + + :LVIDd (3.5-5.7cm) IVSd (0.6-1.1cm) LVPWd (0.6-1.1cm) Aortic Root (2.0-3.7cm)Left Atrium (1.5-4.0cm): :LV Vol(d) (76-115ml) LV Vol(s) (29-48ml) Ejec Fraction (50-65%)PV Taj (0.6- 1.2m/s) TV Taj (0.4-1.0m/s) : :MV E Taj (0.8-1.0m/s)MV A Taj (0.3-1.0m/s)LVOT Taj (0.7-1.2m/s) Asc Ao Taj ( 0.9-1.8m/s) : + + Doppler Measurements & Calculations MV E max taj: Ao V2 max: LV V1 max: PA V2 max: 69.6 cm/sec 105.9 cm/sec 101.2 cm/sec 74.7 cm/sec MV A max taj: Ao max PG: LV V1 max PG: PA max P.8 cm/sec 4.5 mmHg 4.1 mmHg 2.2 mmHg MV E/A: 1.3 TR max taj: 226.7 cm/sec TR max P.6 mmHg RAP systole: 5.0 mmHg RVSP(TR): 25.6 mmHg Left Ventricle The left ventricle is normal in size and function. There is normal left ventricular wall thickness. The left ventricular ejection fraction is normal. Ejection Fraction = 66%. No regional wall motion abnormalities noted. Right Ventricle The right ventricle is normal in size and function. Atria The left atrial size is normal. Right atrial size is normal. Mitral Valve The mitral valve is normal in structure and function. There is no vegetation seen on the mitral valve. There is no mitral valve stenosis. There is no mitral regurgitation noted. Tricuspid Valve Normal tricuspid valve. No tricuspid regurgitation. Aortic Valve The aortic valve is normal in structure and function. The aortic valve is trileaflet. The aortic valve opens well. There is no aortic valvular vegetation. There is no aortic stenosis. There is no aortic insufficiency. Pulmonic Valve The pulmonic valve is normal in structure and function. There is no pulmonic valvular regurgitation. Great Vessels The aortic root is normal size. Pericardium/Pleural There is no pericardial effusion. Conclusion A complete two-dimensional transthoracic echocardiogram was performed (2D, M-mode, Doppler and color flow Doppler). There is no evidence of a mass or vegetation. This does not rule out endocarditis. The left ventricle is normal in size and function. The left ventricular ejection fraction is normal. Ejection Fraction = 66%. No regional wall motion abnormalities noted. The right ventricle is normal in size and function. The left atrial size is normal. Right atrial size is normal. There is no vegetation seen on the mitral valve. The aortic valve is normal in structure and function. The aortic valve is trileaflet. There is no aortic valvular vegetation. There is no pericardial effusion. There is no obvious evidence of a mass or vegetation. This does not rule out endocarditis. Final Reading Physician: Cachorro Michel signed on 12/13/2016 11:44 AM Ordering Physician: Rodolfo Mtz Performed By: Jean Sousa RDCS
[2016-12-13] MEDS ORDERED: POTASSIUM CL 20 MEQ TAB PO ONE (11:48)
--- NOTE | 2016-12-13 15:56 | HOSPPROG ---
Hospitalist Progress Note Assessment/Plan: #Acute renal abscess- CT abdomen (personally reviewed and interpreted) 7 x 6 x 6 cm abscess of the left kidney status post IR drainage yesterday with marked improvement in her pain cultures currently pending- blood cultures no growth to date - continue IV Zosyn - await culture results - patient transition to p.o. pain meds today id consulting for treatment recommendations and outpatient follow-up # acute leukocytosis - 17->13 this a.m. on antibiotics- oxygen saturations 95% on room air - continue current care #Prophylaxis Lovenox #Diet regular # disposition greater than 2 midnights as the patient requiring IV antibiotics and IV pain meds overnight have discussed the case with the RN- encourage ambulation and oral intake with hopeful disposition once culture results available Subjective: pain improved post drainage Objective: Vital Signs Temp Pulse Resp BP Pulse Ox 36.9 C 85 16 103/66 95 12/13/16 12:00 12/13/16 12:00 12/13/16 12:00 12/13/16 12:00 12/13/16 12:00 Microbiology 12/12/16 17:13 Gram Stain - Final Other - Aspirate Laboratory Results 12/13/16 05:05 12/13/16 05:05 12/12/16 12/13/16 12/14/16 05:59 05:59 05:59 Intake Total 125 Output Total 1525 Balance -1400 - Physical Exam Constitutional: appears nourished Eyes: anicteric sclera Ears, Nose, Mouth, Throat: moist mucous membranes Cardiovascular: regular rate and rhythym, systolic murmur Respiratory: no respiratory distress Gastrointestinal: normoactive bowel sounds Genitourinary: no bladder fullness Skin: warm, normal color Musculoskeletal: full muscle strength Neurologic: AAOx3 Psychiatric: interacting appropriately, not anxious Lymph, Heme, Immunologic: no cervical LAD ICD10 Worksheet Patient Problems: Problems Problem Status Diagnosed Renal abscess, left Acute Sepsis Acute
--- NOTE | 2016-12-13 18:46 | PCMIDPN ---
Assessment/Plan: Assessment/Plan: * Left renal abscess (or infected cyst) s/p percutaneous drainage: Gram stain with gram positive pleomorphic rods and now showing growth of gram-positive cocci. Continue Zosyn pending further culture data. Follow drain output over time. Likely to need follow-up CT once drainage slows to assess adequacy of drainage. 12/13/16 18:41 12/13/16 18:47 Subjective: Patient with left flank pain, worse with movement. Objective: Vital Signs Temp Pulse Resp BP Pulse Ox 36.6 C 83 16 103/67 95 12/13/16 16:00 12/13/16 16:00 12/13/16 16:00 12/13/16 16:00 12/13/16 16:00 Microbiology 12/12/16 17:13 Gram Stain - Final Other - Aspirate Laboratory Results 12/13/16 05:05 12/13/16 05:05 12/12/16 12/13/16 12/14/16 05:59 05:59 05:59 Intake Total 125 Output Total 1525 1520 Balance -1400 -1520 Zosyn #2 Blood cultures negative Renal abscess: gram + pleomorphic rods; culture [facility] CT reviewed showing large renal cyst - Physical Exam General Appearance: alert, no apparent distress EENT: pharynx normal, No scleral icterus Respiratory: lungs clear, No respiratory distress Cardiac/Chest: regular rate, rhythm Abdomen: non-tender, No distended Back: CVA tenderness (left flank; bloody output in KATY bulb) ICD10 Worksheet Patient Problems: Problems Problem Status Diagnosed Renal abscess, left Acute Sepsis Acute
[2016-12-14] MEDS: HYDROCODONE/APAP 5/325 TAB PO PRN ×2 (03:29→09:28)
[2016-12-14] MEDS: PIPERACILLIN/TAZO 4.5 GM/DEX 100 ML IV SCH ×4 (04:13→21:47)
--- NOTE | 2016-12-14 09:11 | IR ---
Ultrasound and fluoroscopy guided left renal drain placement INDICATION: Renal cyst at the superior pole that may be the source of patient's infection. Informed consent: Obtained from the patient. Risks and benefits were discussed. Crosscutting Measure: Patient's current list of medications including all known prescriptions, over- the-counters, herbals, and vitamin/mineral/dietary supplements are reviewed. Medications' name, dosa ge, frequency, and route of administration are confirmed. The patient is a non-smoker. Prophylactic Antibiotic: Cefazolin was not ordered and administered for antimicrobial prophylaxis be cause it was not medically necessary. VTE Prophylaxis: There is not an order for VTE prophylaxis to be given within 24 hours of the proced ure end time. VTE prophylaxis was not given because it was not medically necessary. Technique: Patient is placed in prone position. A "timeout" procedure was performed to identify the correct patient and the correct procedure. 1% Xylocaine was used for local anesthetic. All elemen ts of maximal sterile barrier technique including cap, mask, sterile gown, sterile gloves, large ster ile sheet, hand hygiene, and 2% chlorhexidine for cutaneous antisepsis, followed. Ultrasound evaluation of potential access site was performed. A permanent recording was created for the patient's record. When ultrasound is used, sterile gel and probe covers are used. Ultrasound indeed shows a complex left renal superior pole lesion has a fluid/fluid level. This was accessed using an AccuStick needle, followed by advancement of an AccuStick sheath over a Co pe wire. Tract was then dilated over an 0.035 wire, and an 8 German pigtail catheter was advanced. A total of 115 mL of purulent material were aspirated from the cyst, and sent for Gram stain and cult ure. Drain was then left in place attached to KATY bulb suction. The patient tolerated the procedure we ll. Medication: [125] micrograms fentanyl. Impression: 1. Purulent material aspirated out of the left renal cysts, 15 mL, sent for Gram stain and culture. 2. 8 German pigtail drain left in place and attached to bulb suction. 3. Once patient is medically adequately managed, and the drain output is less than 10 mL a day, drain can be removed.
[2016-12-14] MEDS: ONDANSETRON 4 MG/2 ML VIAL IVP PRN ×2 (10:57→17:44)
[2016-12-14] MEDS ORDERED: POLYETHYLENE GLYCOL 3350 17 GM PKT PO PRN (13:26)
[2016-12-14] MEDS ORDERED: BISACODYL 10 MG SUPP PR PRN (13:26)
[2016-12-14] MEDS ORDERED: MAGNESIUM HYDROXIDE 30 ML UDCUP PO PRN (13:26)
[2016-12-14] MEDS ORDERED: LACTULOSE 20 GM/30 ML UDCUP PO PRN (13:26)
[2016-12-14] MEDS: D5W 1/2 NS 1,000 ML IV SCH (13:42)
--- NOTE | 2016-12-14 14:41 | DX ---
Chest, Two Views at 1357 hours History: Shortness of breath. Comparison: None. Findings: Cardiac silhouette is within normal range. Left lower lobe alveolar opacity consistent with pneumonia. Minimal bilateral pleural effusions. No pneumothorax. Impression: 1. Left lower lobe pneumonia. 2. Minimal bilateral pleural effusions. 3. Recommend follow-up until clear.
--- NOTE | 2016-12-14 14:51 | HOSPPROG ---
Hospitalist Progress Note Assessment/Plan: 41y female presents to the emergency room complaints of flank pain. Reviewed her care with Dr. Myles of Infectious Disease #Acute renal abscess- CT abdomen 7 x 6 x 6 cm abscess of the left kidney Etiology unclear status post IR drainage with marked improvement in her pain and drain still in place cultures currently pending- blood cultures no growth to date - continue IV Zosyn - await culture results - patient transition to p.o. pain meds id consulting for treatment recommendations and outpatient follow-up # acute leukocytosis - on antibiotics - continue current care # acute hypoxemia Chest x-ray ordered Likely related to atelectasis Will follow # nausea vomiting Possibly related to pain medication Continue supportive management # constipation Bowel protocol #Prophylaxis Lovenox #Diet regular # disposition greater than 2 midnights as the patient requiring IV antibiotics and IV pain meds overnight Subjective: Complaints nausea and vomiting. Complaints mild shortness of breath. Overall not feeling well today. Objective: Vital Signs Temp Pulse Resp BP Pulse Ox 36.9 C 72 16 122/80 H 94 12/14/16 12:37 12/14/16 12:37 12/14/16 12:37 12/14/16 12:37 12/14/16 12:37 Microbiology 12/12/16 17:13 Gram Stain - Final Other - Aspirate Laboratory Results 12/13/16 05:05 12/13/16 05:05 12/13/16 12/14/16 12/15/16 05:59 05:59 05:59 Intake Total 125 2775 Output Total 1525 2973 Balance -1400 -198 - Physical Exam Constitutional: appears nourished, uncomfortable Eyes: PERRL, anicteric sclera, EOMI Ears, Nose, Mouth, Throat: moist mucous membranes, hearing normal, ears appear normal Cardiovascular: No JVD, No tachycardia, No edema Respiratory: no respiratory distress, no rales or rhonchi, reduced air movement Gastrointestinal: No tenderness, No ascites, No guarding Skin: warm, normal color, No erythema Musculoskeletal: no joint effusions, generalized weakness Neurologic: AAOx3 Psychiatric: not anxious, not encephalopathic, thought process linear ICD10 Worksheet Patient Problems: Problems Problem Status Diagnosed Renal abscess, left Acute Sepsis Acute
--- NOTE | 2016-12-14 17:17 | PCMIDPN ---
Assessment/Plan: Assessment: Left-sided renal abscess. Appears to be a Streptococcus species in culture of the fluid obtained with drainage. Patient is currently on Zosyn which undoubtedly covers this genus. Will await final identification prior to settling on the ultimate antibiotic she needs to use. The size of the abscesses impressive and may be compatible us to treat for a greater duration than 2 weeks. Plan: 1. Continue Zosyn. 2. Follow culture results from aspirate. We 3. Follow the amount of drainage obtained from the abscess cavity. Subjective: Patient is feeling much improved today. She had an episode of vomiting around her oral narcotic dose earlier. Pain is decreased. No fevers or chills. Objective: Zosyn # 3 Vital Signs Temp Pulse Resp BP Pulse Ox 37.4 C 87 16 124/79 H 95 12/14/16 17:08 12/14/16 15:54 12/14/16 15:54 12/14/16 15:54 12/14/16 15:54 Microbiology 12/12/16 17:13 Gram Stain - Final Other - Aspirate Laboratory Results 12/13/16 05:05 12/13/16 05:05 12/13/16 12/14/16 12/15/16 05:59 05:59 05:59 Intake Total 125 2775 Output Total 1525 2973 Balance -1400 -198 - Physical Exam General Appearance: WD/WN, alert, no apparent distress, toxic (Mildly) Respiratory: lungs clear, normal breath sounds, No respiratory distress Cardiac/Chest: regular rate, rhythm, No tachycardia Abdomen: soft Skin: normal color, warm/dry, No rash Neuro/Psych: alert, normal mood/affect, oriented x 3 ICD10 Worksheet Patient Problems: Problems Problem Status Diagnosed Renal abscess, left Acute Sepsis Acute
[2016-12-14] MEDS: SENNOSIDES/DOCUSATE SODIUM TAB PO SCH (19:33)
[2016-12-14 21:03] VITALS: RESP 16
[2016-12-15] MEDS: PIPERACILLIN/TAZO 4.5 GM/DEX 100 ML IV SCH ×2 (03:58→09:57)
[2016-12-15] MEDS: ONDANSETRON 4 MG/2 ML VIAL IVP PRN (06:05)
[2016-12-15] MEDS ORDERED: PIPERACILLIN/TAZO 4.5 GM/DEX 100 ML IV SCH (10:00)
[2016-12-15] MEDS: SENNOSIDES/DOCUSATE SODIUM TAB PO SCH (10:17)
[2016-12-15] MEDS ORDERED: ALTEPLASE 2 MG VIAL IVP PRN (14:38)
--- NOTE | 2016-12-15 15:13 | PDIAF ---
- Diagnosis Diagnosis: Renal abscess Code Status: Full Code - Medication Management Discharge Medications: Medications to Continue on Transfer Hydrocodone/APAP 5/325 [Goode 5/325 (*)] 1 - 2 tab PO Q4-6PRN PRN #10 tab [Last Taken 12/11/16 22:00] Ondansetron Odt [Zofran Odt 4 mg (*)] 4 mg PO Q4PRN PRN #10 tab 12/10/16 [Last Taken 12/11/16 19:00] Auricular Acupuncturist Antibiotics: Ceftriaxone 2 g IV q24 Residential Antibiotic Stop Date: 01/09/17 Discharge Medications: Refer to the Discharge Home Medication list for PRN reason. PICC Care - Routine: Yes - Orders Services needed: Home [facility] Care Face to Face: I certify that this patient was under my care and that I had the required [id number] encounter meeting the encounter requirements on the discharge day. My findings support the fact that the patient is homebound as defined in CMS Chapter 7 Medicare Benefits Manual 30.1.1, The condition of the patient is such that there exists a normal inability to leave home and consequently, leaving home would require a considerable and taxing effort. Additional: Teach patient to empty KATY drain - Labs/Radiology CBC Date: 12/18/16 (weekly q Mon) CMP Date: 12/18/16 (weekly q Mon) Call or Fax Lab and Imaging Results to: Dr. Driver, - Follow Up Care Current Providers and Referrals: Viji Gallegos, PAC [Primary Care Provider] - As per Instructions Milagros Marcum, JERED [Certified Nurse Practioner] - 12/19/16 9:45 am
[2016-12-15 17:06] VITALS: BP 119/78; PULSE 73; TEMP 97.6; O2SAT 94
--- NOTE | 2016-12-15 17:50 | IR ---
Imaging Guided Peripherally Inserted Central Catheter History: Renal abscess. Technique: Following informed consent, the right arm was prepped and draped in sterile fashion. All e lements of maximal sterile barrier technique including cap, mask, sterile gown, sterile gloves, large sterile sheet, hand hygiene, and 2% chlorhexidine for cutaneous antisepsis, followed. Ultrasound tra nsducer was placed in sterile sleeve and sterile coupling gel was used. Ultrasound evaluation of pote ntial access sites was performed. After successfully identifying a patent vessel of adequate size, 1% Xylocaine was used for local anesthetic. Ultrasound guidance was used to puncture the basilic vein with a 21-gauge needle. 0.018 measuring wire was passed centrally under fluoroscopic control. A skin jean with scalpel blade was followed by removing the access needle. A 4.5 Micronesian peel-away sheath was followed by a 4 Micronesian single-lumen central catheter, trimmed to 45 cm length. The tip of the cathet er was positioned centrally and the guidewire removed. AP fluoroscopic spot image was obtained in ins piration. The catheter irrigated easily. The hub of the catheter was secured to the skin using a Stat Lock adhesive device, and a sterile dressing was applied. Fluoroscopy time in minutes: 0.1 . Estimated exposure in mGy: 2.2 . Findings: The tip of the central catheter terminates at the junction of the superior vena cava and th e right atrium. Impression: 4 Micronesian single-lumen central catheter peripherally inserted central catheter is ready to use. - - - - - - - - - - - - - - - - - - - - - - - - - - - - - - - - - - - - - - - - - (Cross-cutting measures: Current medications were listed in the medical record, including all known prescriptions, [id number] medications, herbal medications, and nutritional supplements. The pat ient does not smoke. )
--- NOTE | 2016-12-15 18:13 | PCMIDPN ---
Assessment/Plan: Assessment/Plan: * Left renal abscess (or infected cyst) s/p percutaneous drainage: Culture with growth of Streptococcus sanguinous - unusual pathogen for renal abscess and suggest that transient bacteremia occurred at some point with secondary seeding of kidney. Susceptibility results will be available tomorrow. Will change Zosyn to ceftriaxone [address] PICC line with anticipated 4 week course of antibiotic therapy although duration will be determined by repeat imaging over time. Will maintain drain for now as continues to have some output. Once output ceases, plan repeat CT scan to determine adequacy of drainage and assess for drain removal. Weekly CBC and CMP on ceftriaxone therapy. Risk and benefits of ceftriaxone and PICC line were discussed with patient today. 12/15/16 18:11 Subjective: Patient feels much better. Left flank pain significantly decreased and eager to go home. Objective: Vital Signs Temp Pulse Resp BP Pulse Ox 36.4 C 73 16 119/78 94 12/15/16 15:20 12/15/16 15:20 12/15/16 15:20 12/15/16 15:20 12/15/16 15:20 Microbiology 12/12/16 17:13 Gram Stain - Final Other - Aspirate Laboratory Results 12/13/16 05:05 12/13/16 05:05 12/14/16 12/15/16 12/16/16 05:59 05:59 05:59 Intake Total 2775 1250 Output Total 2973 1400 30 Balance -198 -150 -30 Zosyn # 4 Renal abscess culture with growth of Streptococcus sanguinous Blood cultures x2 no growth - Physical Exam General Appearance: alert, no apparent distress EENT: pharynx normal, No scleral icterus Abdomen: non-tender, No distended Back: other (KATY drain with dark blood present), No CVA tenderness ICD10 Worksheet Patient Problems: Problems Problem Status Diagnosed Renal abscess, left Acute Sepsis Acute
--- NOTE | 2016-12-16 04:48 | GDS ---
[f rep st] DISCHARGE SUMMARY DISCHARGE DIAGNOSIS: Left renal abscess or infected cyst. CONSULTATIONS: Infectious Disease. STUDIES AND PROCEDURES DONE: 1. CT of the abdomen. 2. Echocardiogram. 3. PICC line placement. PHYSICAL EXAMINATION: GENERAL: The patient is alert. VITAL SIGNS: Afebrile at 36.4, pulse is 73, respiratory rate 16, blood pressure is 119/78, she is saturating 94% on room air. I have seen and ev aluated the patient on the day of discharge. HOSPITAL COURSE: The patient is a 41-year-old female who presented to the emergency room with compla ints of left-sided flank pain. She was evaluated by CT of the abdomen and pelvis and noted to have a significant sized abscess or infected cyst. During this hospital course, she received a consultation from Infectious Disease, as well as Interventional Radiology. Her abscess was drained with a KATY addis cement. The culture shows Streptococcus which is an unusual organism for a renal abscess. The etiol ogy of this is unclear at this time. She was placed on IV Zosyn during this hospitalization and hung sitioned to ceftriaxone at the time of disposition. A PICC line had been placed prior to disposition and she will require a 4-week course of IV antibiotic therapy in the outpatient setting. Her sympto ms are significantly improved. She remains afebrile with decreased pain. She no longer has any nause a or vomiting, or other notable complications. Follow up in the outpatient setting will consist of a repeat CT scan to determine adequate drainage and assess for KATY drain removal. She will require wee kly blood tests in the outpatient setting, including a CBC and metabolic panel while on ceftriaxone. I reviewed the patient's care with Dr. Nakul Driver of Infectious Disease. He is in agreement with thi s plan. I have educated the patient at length prior to her disposition and she is comfortable with h er discharge plan. DISCHARGE MEDICATIONS: Include ceftriaxone 2 g IV q. 24 hours. Followup then will be with her prima ry care provider, Viji Gallegos, as well as Milagros Marcum from the [facility] on 12/19 at 9:45 am. I spent greater than 35 minutes in the care, coordination, and management of the patient's dispositio n. /[id number]/MODL
== END 2016-12-15 18:10 | disposition home or self-care (01) | DRG 690 ==
LOC: FOB 10:34 → OBSVTOIN 11:28
PROVIDERS: ADMIT Student in an Organized Health Care Education/Training Program; ATTEND Hospitalist
PROC: 0T913ZX Drainage of Left Kidney, Percutaneous Approach, Diagnostic (ICD-10-PCS; principal; 2016-12-12 17:32)
PROC: 02HV33Z Insertion of Infusion Device into Superior Vena Cava, Percutaneous Approach (ICD-10-PCS; 2016-12-15)
DX: N15.1 Renal and perinephric abscess (principal); B95.5 Unspecified streptococcus as the cause of diseases classified elsewhere; K59.00 Constipation, unspecified; J98.11 Atelectasis
CPT/HCPCS: 96365; C1729; C1751; C1769; J0696; J1170; J1644; J2270; J2310; J2405; J2543; J3010; J3370; Q9967

== ENCOUNTER → 2016-12-20 | Day surgery (SDC) | payer OTHER ==
[~2016-12-20] MED LIST: fentaNYL 100 MCG/2 ML INJ ONE
--- NOTE | 2016-12-20 21:16 | IR ---
Abscessogram Indication: Left percutaneous renal abscess drain in place. Since the infection has been cleared, debra myles is draining 90 mL of what looks like urine every 3 hours. Informed Consent: Obtained from the patient. Risks and benefits were discussed. Cross Cutting Measure: Patient's current list of medications including all known prescriptions, over -the-counters, herbals, and vitamin/mineral/dietary supplements are reviewed. Medications' name, dos age, frequency, and route of administration are confirmed. Patient is a non-smoker. Prophylactic Antibiotic: Cefazolin was not ordered and administered for antimicrobial prophylaxis be cause it was not medically necessary. VTE Prophylaxis: There is not an order for VTE prophylaxis to be given within 24 hours of the proced ure end time. VTE prophylaxis was not given because it was not medically necessary. Technique: Patient is placed in prone position. A "timeout" procedure was performed to identify the correct patient and the correct procedure. 1% Xylocaine was used for local anesthetic. All elemen ts of maximal sterile barrier technique, including cap, mask, sterile gown, sterile gloves, large graeme rile sheet, hand hygiene, and 2% chlorhexidine for cutaneous antisepsis, followed. Urine dipstick is performed in the fluid that is in the bulb suction. It is indeed urine. When I aspirate, I get clear urine out readily. Contrast was injected into the cavity. After placement of about 40 mL, the patient was very uncomfor table from distention. Multiple images are taken. There was no evidence of communication with the r enal collecting system. Injected fluid was aspirated. Fluoroscopy: 1.3 minutes, nine images. Impressions 1. No communication between the abscess cavity and the collecting system. 2. Draining 90 mL of urine every 3 hours into bulb. 3. It is possible that this represents a diverticulum and not a renal cyst, would then just make uri ne. 4. Infection has been cleared. Still on antibiotics. Plan 1. I have capped this drain at this time. The thought is that if it is a diverticulum, after it aletha ls up to a certain point, it would just stop continuing to make urine, and she would have a noninfect ed urine collection just like she had before. 2. She has a repeat appointment in two days. At that time, we would know whether she tolerated capp ing. If she has, the drain will be removed. 3. If she does not tolerate capping, she will reopen to gravity drainage. Instructions were given t o the patient. 4. If she does not tolerate capping, we will have to consider sclerotherapy versus retrograde cystog oniel/stent placement by Urology. All the above are explained to the patient and her parents. I have [____] consulted Dr. Cachorro Nguyen on this patient. She may need to see Dr. Nguyen in an official office visit. The above are discussed with Dr. Nakul Driver. E:Garrett/dev
== END | disposition home or self-care (01) ==
LOC: FIMAGING 13:19
PROVIDERS: ATTEND Nurse Practitioner
PROC: 0T913ZZ Drainage of Left Kidney, Percutaneous Approach (ICD-10-PCS; principal; 2016-12-20)
PROC: BT121ZZ Fluoroscopy of Left Kidney using Low Osmolar Contrast (ICD-10-PCS; 2016-12-20)
DX: N15.1 Renal and perinephric abscess (principal)
CPT/HCPCS: J3010

== ENCOUNTER → 2016-12-22 | Day surgery (SDC) | payer OTHER ==
[~2016-12-22] MED LIST changes: +FLUMAZENIL 0.5 MG/5 ML MDV IVP ONE; +MIDAZOLAM 2 MG/2 ML VIAL ONE; +NALOXONE HCL 0.4 MG/ML INJ ONE
[2016-12-22 08:38] LABS: % IMMATURE GRANULYOCYTES 0.5 % (0.0-1.1); ABSOLUTE IMMATURE GRANULOCYTES 0.03 10^3/uL (0.00-0.10); ADD DIFF? NO; ADD MORPH? NO; ADD SCAN? NO; ATYPICAL LYMPHOCYTE FLAG 10 (0-99); FRAGMENT RBC FLAG 0 (0-99); HEMATOCRIT 36.6 % (38.0-47.0); HEMOGLOBIN 12.7 g/dL (12.6-16.3); LEFT SHIFT FLG 0 (0-99); LIPEMIA HEMOLYSIS FLAG 90 (0-99); MEAN CELL HEMOGLOBIN CONCENTR. 34.7 g/dL (32.4-36.7); MEAN CELL VOLUME 89.3 fL (81.5-99.8); MEAN PLATELET VOLUME 8.3 fL (8.7-11.7); PLATELET CLUMPS FLAG 0 (0-99); PLATELET COUNT 442 10^3/uL (150-400); RED CELL DISTRIBUTION WIDTH 12.5 % (11.5-15.2)
[2016-12-22 08:48] LABS: INR 0.98 (0.83-1.16); PROTIME(PATIENT) 12.9 SEC (12.0-15.0)
[2016-12-22 08:52] LABS: ALANINE AMINOTRANSFERASE 42 IU/L (9-52); ALBUMIN 3.1 g/dL (3.5-5.0); ALKALINE PHOSPHATASE 64 IU/L (38-126); ANION GAP 6 mEq/L (8-16); ASPARTATE AMINOTRANSFERASE 15 IU/L (14-46); BILIRUBIN,TOTAL 0.4 mg/dL (0.1-1.4); CALCIUM 8.6 mg/dL (8.5-10.4); CARBON DIOXIDE 26 mEq/l (22-31); CHLORIDE 106 mEq/L (97-110); CREATININE 0.6 mg/dL (0.6-1.0); GLOMERULAR FILTRATION RATE > 60; GLUCOSE 95 mg/dL (70-100); POTASSIUM 4.3 mEq/L (3.5-5.2); SODIUM 138 mEq/L (134-144); TOTAL PROTEIN 6.2 g/dL (6.3-8.2)
--- NOTE | 2016-12-22 21:59 | IR ---
Interventional Consult Relevant History: The patient has capped the left nephrostomy drain for two days now. Follow up. Presentation: She has completely tolerated the capping very well. No pain or discomfort. No bulge at the flank area. Physical Exam: There is no externally visible abnormality. The drain was opened, and 30 mL of seros anguineous urine drained into the KATY bulb. The drain was then cut and removed at bedside. Consultation: In general then, I think the cyst would still be there on subsequent imaging. 30 mL r epresents exactly the volume of the cyst. As to why it produces urine, and why it got infected in th e first place, are questions that are still unclear or unanswered. It may have been that the patient had a systemic infection that then subsequently infected this cyst. The patient expressed understanding of all the information discussed today. Follow up: She has a follow-up appointment with Dr. Cachorro Nguyen in 2-3 weeks. Total [id number]-pr-mdil consultation was 20 minutes. Crosscutting Measure: Patient's current list of medications including all known prescriptions, over- the-counters, herbals, and vitamin/mineral/dietary supplements are reviewed. Medications' name, dosa ge, frequency, and route of administration are confirmed. Patient is a nonsmoker.
== END | disposition home or self-care (01) ==
LOC: FIMAGING 07:36
PROVIDERS: ATTEND Radiology Diagnostic Radiology
PROC: 0TP5X0Z Removal of Drainage Device from Kidney, External Approach (ICD-10-PCS; principal; 2016-12-22)
PROC: 0T9130Z Drainage of Left Kidney with Drainage Device, Percutaneous Approach (ICD-10-PCS; 2016-12-22)
DX: N28.1 Cyst of kidney, acquired (principal)
CPT/HCPCS: 87186-90; J2250; J2310; J3010

== ENCOUNTER → 2016-12-26 | Outpatient (CLI) | payer OTHER ==
--- NOTE | 2016-12-26 13:18 | DX ---
Portable Chest 1231 p.m. History: Evaluate PICC line placement performed portably Comparison: December 14, 2016 Findings: A right arm PICC line is in excellent position with tip in the superior vena cava. Prior le ft basilar consolidation and effusion have completely cleared. Impression: Excellent position of the PICC line.
== END ==
LOC: FIMAGING 12:29
PROVIDERS: ATTEND Nurse Practitioner
DX: Z09 Encounter for follow-up examination after completed treatment for conditions other than malignant neoplasm (principal); Z95.9 Presence of cardiac and vascular implant and graft, unspecified

== ENCOUNTER → 2017-01-11 | Outpatient (CLI) | payer OTHER | LOC: BRMIMAGING 13:17 | PROVIDERS: ATTEND Specialist | DX: N28.1 Cyst of kidney, acquired (principal) | CPT/HCPCS: 76770-PO ==

== ENCOUNTER → 2017-08-01 | Outpatient (CLI) | payer OTHER | LOC: CIMAGING 15:04 | PROVIDERS: ATTEND Specialist | DX: N28.1 Cyst of kidney, acquired (principal) | CPT/HCPCS: 76770-PO ==